=== PATIENT | male | born 1975 | race Caucasian/White ===

== ENCOUNTER → 2023-11-26 06:22 | Day surgery (SDC) | payer OTHER, SELFPAY | LOC: GI 06:22 | PROVIDERS: ATTENDING PHYSICIAN Internal Medicine Gastroenterology; FAMILY PHYSICIAN Family Medicine | DX: Z12.11 Encounter for screening for malignant neoplasm of colon (principal); K64.0 First degree hemorrhoids; K57.30 Diverticulosis of large intestine without perforation or abscess without bleeding; D12.0 Benign neoplasm of cecum; D12.7 Benign neoplasm of rectosigmoid junction | CPT/HCPCS: 45385; 45380; 88305 ==